=== PATIENT | female | born 1995 | race Caucasian/White ===

== ENCOUNTER 2019-02-13 17:45 | Inpatient (IN) | payer BC, OTHER ==
[2019-02-13] MEDS ORDERED: NS / Oxytocin 40 units/1000ml 1,000 ML IV PRN (17:59)
[2019-02-13] MEDS ORDERED: Lidocaine 1% (PF) 30 ML VIAL SC PRN (17:59)
[2019-02-13] MEDS ORDERED: Ondansetron PF 4 MG/2 ML Vial IVP PRN (17:59)
[2019-02-13] MEDS ORDERED: Promethazine HCl 25 MG/ML VIAL IM PRN (17:59)
[2019-02-13] MEDS ORDERED: hydrALAZINE 20 MG/ML VIAL SLOW IVP PRN (17:59)
[2019-02-13] MEDS ORDERED: NS w/ Oxytocin 10 units 500 ML IV SCH ×2 (18:00→18:15)
[2019-02-13] MEDS ORDERED: HYDROcodone/Acetaminophen 5/325 mg Tablet PO PRN ×2 (18:05)
[2019-02-13] MEDS ORDERED: Zolpidem Tartrate 5 MG TAB PO PRN (18:05)
[2019-02-13] MEDS ORDERED: Butorphanol Tartrate 1 MG/ML VIAL SLOW IVP PRN (18:05)
[2019-02-13] MEDS ORDERED: Misoprostol 200 MCG TAB PR PRN (18:05)
[2019-02-13] MEDS ORDERED: Ibuprofen 800 MG TAB PO PRN (18:05)
[2019-02-13] MEDS ORDERED: Carboprost 250 MCG/ML AMP IM PRN (18:05)
[2019-02-13] MEDS ORDERED: Diphenoxylate HCl/Atropine Tablet PO PRN ×2 (18:05)
[2019-02-13] MEDS ORDERED: Methylergonovine 0.2 MG/ML VIAL IM PRN (18:05)
[2019-02-13 18:08] VITALS: BMI 29.5
--- NOTE | 2019-02-13 18:18 | PDOC.LDHP ---
Labor and Delivery H&P Chief complaint: scheduled induction HPI: 23 y/o at 38 weeks and 6/7 days presents with Oligohydramnios noted at her last visit, with normal, reassuring NST/BPP in clinic last week for medically indicated induction. Grav: 2 Para: 1 Current complications: other (17-P used to prevent labor until 36 weeks.) Abnormal US findings: Yes (Oligohydramnios) Current medications: pre- vitamins Previous surgical history: none Social history: none - Physical Exam Vital signs reviewed and normal: yes General: NAD, resting Heart: RRR Lungs: nonlabored breathing Abdomen: gravid Extremeties: no edema FHT: category 1 - Assessment L&D Assessment: medically indicated induction - Plan Plan: admit to L&D, cervical ripening
[2019-02-13] MEDS: Lactated Ringer's 1,000 ML IV SCH ×2 (18:26→22:22)
[2019-02-13 18:56] LABS: Hemoglobin 10.7 g/dL (12.0-16.0); Mean Corpuscular HGB CONC 34.5 g/dL (32.0-36.0); Mean Corpuscular Hemoglobin 27.9 pg (27.0-31.0); Mean Corpuscular Volume 80.9 fL (78.0-98.0); Mean Platelet Volume 8.7 fL (7.4-10.4); Platelet Count 224 thou/uL (130-400); RBC Distribution Width 13.1 % (11.5-14.5); Red Blood Cell (RBC) Count 3.84 mill/uL (4.20-5.40)
[2019-02-13 19:36] LABS: HBSAg Index 0.33 S/CO (0-0.99); Hep B Surf Ag Non-Reactive S/CO (NonReactive)
[2019-02-13 19:37] LABS: Syphilis Antibody Nonreactive (Nonreactive); Syphilis Antibody Index 0.04 S/CO (<1.00 Non-Reactive)
[2019-02-13] MEDS: Misoprostol 100 MCG TAB VAG SCH ×2 (19:40→22:22)
[2019-02-14] MEDS ORDERED: Fentanyl 4 mcg/Bup 0.1% Cadd 100 ML ONE (00:45)
[2019-02-14] MEDS ORDERED: ePHEDrine/0.9% NaCl/PF SYRINGE 50 mg/10 ml SLOW IVP PRN (01:18)
[2019-02-14] MEDS ORDERED: Acetaminophen 325 MG TAB PO PRN (01:18)
[2019-02-14] MEDS ORDERED: Naloxone HCl 0.4 mg/ml Vial IVP PRN ×2 (01:18)
[2019-02-14] MEDS ORDERED: Promethazine HCl 25 MG/ML VIAL IM PRN ×2 (01:18→10:30)
[2019-02-14] MEDS ORDERED: Ondansetron PF 4 MG/2 ML Vial IVP PRN ×2 (01:18→10:30)
[2019-02-14] MEDS ORDERED: diphenhydrAMINE 50 MG/ML VIAL IVP PRN (01:18)
[2019-02-14] MEDS ORDERED: Lactated Ringer's 500 ML IV PRN (01:18)
[2019-02-14] MEDS: Misoprostol 100 MCG TAB VAG SCH ×2 (01:21→03:30)
[2019-02-14] MEDS ORDERED: Fentanyl 4 mcg/Bupivacaine 0.1% Cassette 100 ML EPIDURAL SCH (01:30)
[2019-02-14] MEDS ORDERED: Communication Order-Pharmacy FS SCH (01:30)
[2019-02-14] MEDS: Lactated Ringer's 1,000 ML IV SCH (02:37)
[2019-02-14] MEDS ORDERED: Lanolin Ointment 7 GM TUBE TOP PRN (10:30)
[2019-02-14] MEDS ORDERED: Preparation H Ointment 28 GM TUBE PR PRN (10:30)
[2019-02-14] MEDS ORDERED: diphenhydrAMINE 25 MG CAP PO PRN (10:30)
[2019-02-14] MEDS ORDERED: Milk Of Magnesia 30 ML UDCUP PO PRN (10:30)
[2019-02-14] MEDS ORDERED: Benzocaine-Menthol 82.5 ML CAN TOP PRN (10:30)
[2019-02-14] MEDS ORDERED: HYDROcodone/Acetaminophen 5/325 mg Tablet PO PRN ×2 (10:30)
[2019-02-14] MEDS ORDERED: Methylergonovine 0.2 MG/ML VIAL IM PRN (10:30)
[2019-02-14] MEDS ORDERED: hydrALAZINE 20 MG/ML VIAL SLOW IVP PRN (10:30)
[2019-02-14] MEDS ORDERED: NS / Oxytocin 40 units/1000ml 1,000 ML IV SCH (10:30)
[2019-02-14] MEDS ORDERED: Bisacodyl 10 MG SUPP PR PRN (10:30)
[2019-02-14] MEDS ORDERED: NS / Oxytocin 40 units/1000ml 1,000 ML ONE (10:35)
[2019-02-14] MEDS: Ibuprofen 800 MG TAB PO SCH ×2 (14:07→21:43)
[2019-02-14] MEDS: Docusate Calcium (SURFAK) 240 MG CAP PO SCH (17:46)
[2019-02-14] MEDS: Ferrous Sulfate 325 MG TAB PO SCH (18:41)
[2019-02-15] MEDS: Ibuprofen 800 MG TAB PO SCH ×2 (05:16→13:51)
[2019-02-15 07:38] LABS: Hemoglobin 10.5 g/dL (12.0-16.0)
[2019-02-15 07:56] VITALS: BP 103/66; TEMP 97.6
[2019-02-15] MEDS ORDERED: Measles/Mumps/Rubella 10 MCG/0.5 ML VIAL SC ONE (09:00)
[2019-02-15] MEDS ORDERED: Prenatal Vitamin 1 TAB PO SCH (09:00)
[2019-02-15] MEDS ORDERED: Adacel (T-DAP) 0.5 ML SYRINGE IM ONE (09:00)
[2019-02-15] MEDS: Docusate Calcium (SURFAK) 240 MG CAP PO SCH (09:10)
[2019-02-15] MEDS: Ferrous Sulfate 325 MG TAB PO SCH ×2 (09:10→18:18)
[2019-02-15] MEDS: Misoprostol 100 MCG TAB VAG SCH ×2 (17:55→17:56)
--- NOTE | 2019-02-15 18:38 | PDOC.PP ---
Post Progress Note Post Day #: 1 PO intake tolerated: yes Flatus: yes Ambulation: yes Vital Signs (12 hours) Temp Pulse Resp BP Pulse Ox 02/15/19 07:55 97.6 F 74 20 103/66 100 02/15/19 07:45 100 Weight Weight 172 lb - Physical Examination General: NAD Cardiovascular: no m/r/g Respiratory: clear to auscultation bilaterally, non-labored breathing Abdominal: + bowel sounds, lochia Extremities: negative homans (B) Neurological: no gross focal deficits Psychiatric: A&Ox3, normal affect (DC to home) Result Diagrams: 02/15/19 07:18 Additional Labs: Post Labs Blood Type O POSITIVE 02/13/19 19:29 Hep Bs Antigen Non-Reactive S/CO (NonReactive) 02/13/19 18:32
--- NOTE | 2019-02-16 13:33 | DN ---
DATE OF PROCEDURE: TIME OF SERVICE: At [address] Daylight Savings Time. PREOPERATIVE DIAGNOSIS: Intrauterine at 39 weeks and zero days with a term medical induction of labor for oligohydramnios. POSTOPERATIVE DIAGNOSIS: Intrauterine at 39 weeks and zero days with a term medical induction of labor for oligohydramnios. PROCEDURE: Spontaneous vaginal delivery over first-degree laceration of the perineum. FINDINGS: Viable female , weighing 2740 g or 6 pounds 1-ounce, Apgars 9 and 9 with an estimated blood loss of 120 mL. COMPLICATIONS: None. PROCEDURE IN DETAIL: The patient presented to [facility] where she was admitted to the labor and delivery service. The patient underwent a normal and uneventful labor with normal cervical dilatation until she was found to be completely dilated. She was then allowed to push and was able to bring the baby down and delivered the baby in a vertex presentation without difficulties. Once the head delivered in occiput anterior position, the shoulders followed spontaneously along with the rest of the baby's body. Once out the baby's mouth and nose were bulb suctioned. The cord was clamped and cut and baby was handed to waiting attendants. Cord blood was collected. Gentle fundal massage was performed and the placenta delivered intact without problems. Hemostasis was assured. Quantitative blood loss was calculated. Inspection of the cervix, vaginal vault, and perineum did not reveal any lacerations needing suturing. Once again, hemostasis was within normal limits and the patient was allowed to recover in the labor and delivery room. Baby went to nursery. Job ID: [id number]
== END 2019-02-15 19:46 | disposition home or self-care (01) | DRG 807 ==
LOC: L&D 17:45 → 3SW 02-14 11:10
PROVIDERS: ADMIT Obstetrics & Gynecology; ATTEND Obstetrics & Gynecology
PROC: 3E0P7VZ Introduction of Hormone into Female Reproductive, Via Natural or Artificial Opening (ICD-10-PCS; principal; 2019-02-14)
PROC: 10E0XZZ Delivery of Products of Conception, External Approach (ICD-10-PCS; 2019-02-15)
DX: O41.03X0 Oligohydramnios, third trimester, not applicable or unspecified (principal); Z37.0 Single live birth; Z3A.38 38 weeks gestation of pregnancy; O70.0 First degree perineal laceration during delivery
CPT/HCPCS: 36415; 51702; 85014; 85018; 85027; 86780; 86850; 86900; 86901; 87340; 90715; J2405; J2590

== ENCOUNTER 2019-08-18 22:40 | Emergency (ER) | payer BC, OTHER ==
[2019-08-18 22:58] LABS: #Basophils 0.1 thou/uL (0.0-0.2); #Eosinphils 0.1 thou/uL (0.0-0.7); #Monocytes 0.6 thou/uL (0.11-0.59); #Neutrophils 5.9 thou/uL (1.40-6.50); %Basophils 0.7 % (0.0-1.0); %Eosinophils 1.1 % (0.0-10.0); %Monocytes 5.8 % (0.0-10.0); %Neutrophils 61.4 % (42.0-75.0); Hemoglobin 14.4 g/dL (12.0-16.0); Mean Corpuscular Volume 84.5 fL (78.0-98.0); Platelet Count 273 thou/uL (130-400); RBC Distribution Width 12.7 % (11.5-14.5); Red Blood Cell (RBC) Count 5.33 mill/uL (4.20-5.40); White Blood Cell (WBC) Count 9.6 thou/uL (4.8-10.8)
--- NOTE | 2019-08-18 23:05 | RAD ---
Chest AP view INDICATION: Chest pain for one week COMPARISON: None FINDINGS: Lungs:The lungs are clear Cardiac silhouette:The cardiomediastinal silhouette appears within normal limits. Pulmonary vasculature:Normal Pleural spaces:No pleural effusion or pneumothorax is demonstrated. Upper abdomen:No abnormality seen. Osseous structures: No acute osseous abnormality. Additional findings:None. IMPRESSION: No acute cardiopulmonary abnormality.
[2019-08-18 23:19] LABS: ALT (SGPT) 13 U/L (8-55); AST (SGOT) 17 U/L (5-34); Albumin 5.1 g/dL (3.5-5.0); Alkaline Phosphatase 103 U/L (40-110); Anion Gap 14 mmol/L (10-20); BUN (Urea Nitrogen) 16 mg/dL (7.0-18.7); Bilirubin, Total 0.4 mg/dL (0.2-1.2); CK (CPK) 83 U/L (29-168); Calc. Creatinine Clearance 0 mL/min (70-130); Calcium 9.9 mg/dL (7.8-10.44); Carbon Dioxide 27 mmol/L (22-29); Chloride 104 mmol/L (98-107); Estimated GFR-MDRD 78; Globulin 3.4 g/dL (2.4-3.5); Glucose 100 mg/dL (70-105); Lipase 58 U/L (8-78); Potassium 3.7 mmol/L (3.5-5.1); Protein, Total 8.5 g/dL (6.0-8.3); Sodium 141 mmol/L (136-145)
[2019-08-18] MEDS ORDERED: Lidocaine Viscous Sol 2% 15 ml UD Cup ONE (23:21)
[2019-08-18] MEDS ORDERED: Mag-Al 1200 mg/1200 mg/30 ML UDCUP ONE (23:21)
== END 2019-08-19 00:20 | disposition home or self-care (01) ==
LOC: ERS 22:40
DX: R07.9 Chest pain, unspecified (principal)
CPT/HCPCS: 71045; 80053; 82550; 83690; 84484; 85025; 93005

== ENCOUNTER 2019-08-21 23:08 | Emergency (ER) | payer BC, OTHER ==
[2019-08-21 23:29] LABS: #Basophils 0.1 thou/uL (0.0-0.2); #Eosinphils 0.1 thou/uL (0.0-0.7); #Monocytes 0.6 thou/uL (0.11-0.59); #Neutrophils 6.2 thou/uL (1.40-6.50); %Basophils 0.7 % (0.0-1.0); %Lymphocytes 29.8 % (21.0-51.0); %Monocytes 5.8 % (0.0-10.0); %Neutrophils 62.7 % (42.0-75.0); Hemoglobin 13.1 g/dL (12.0-16.0); Mean Corpuscular HGB CONC 30.9 g/dL (32.0-36.0); Mean Corpuscular Hemoglobin 25.9 pg (27.0-31.0); Mean Corpuscular Volume 83.6 fL (78.0-98.0); Platelet Count 265 thou/uL (130-400); RBC Distribution Width 12.7 % (11.5-14.5); Red Blood Cell (RBC) Count 5.05 mill/uL (4.20-5.40); White Blood Cell (WBC) Count 9.9 thou/uL (4.8-10.8)
[2019-08-21 23:32] LABS: Bilirubin Negative (Negative); Blood, Urine 2+ (Negative); Clarity Clear (Clear); Glucose, Urine (Dipstick) Normal (Negative); Leukocyte 75 Leu/uL (Negative); Nitrite Negative (Negative); Protein, Urine (Dipstick) 10 mg/dL (Neg-Trace); RBC/HPF 0-3 HPF (0-3); Urobilinogen Normal mg/dL (Less than 2)
[2019-08-21 23:33] LABS: Bacteria/HPF 1+ HPF (None Seen); Pregnancy Test - Urine (BHCG) Negative (Negative); Pregu Control Background? CLEAR/WHITE (CLR/WHITE); Pregu Control Bar Appear? YES (CONTROL BAR); Specific Gravity 1.026 (1.002-1.036)
[2019-08-21 23:48] LABS: ALT (SGPT) 10 U/L (8-55); AST (SGOT) 16 U/L (5-34); Albumin 4.7 g/dL (3.5-5.0); Alkaline Phosphatase 109 U/L (40-110); Anion Gap 13 mmol/L (10-20); BUN (Urea Nitrogen) 19 mg/dL (7.0-18.7); Bilirubin, Total 0.3 mg/dL (0.2-1.2); Calc. Creatinine Clearance 0 mL/min (70-130); Calcium 9.7 mg/dL (7.8-10.44); Carbon Dioxide 25 mmol/L (22-29); Chloride 104 mmol/L (98-107); Estimated GFR-MDRD 83; Globulin 3.2 g/dL (2.4-3.5); Glucose 100 mg/dL (70-105); Lipase 38 U/L (8-78); Potassium 3.3 mmol/L (3.5-5.1); Protein, Total 7.9 g/dL (6.0-8.3); Sodium 139 mmol/L (136-145)
[2019-08-22] MEDS ORDERED: Sucralfate 1 GM/10 ML UDCUP ONE (00:27)
== END 2019-08-22 00:35 | disposition home or self-care (01) ==
LOC: ERS 23:08
DX: R10.12 Left upper quadrant pain (principal)
CPT/HCPCS: 36415; 80053; 81003; 81015; 81025; 83690; 85025; 99284

== ENCOUNTER 2019-12-28 22:41 | Emergency (ER) | payer MEDICAID, SELFPAY ==
[2019-12-28 23:41] LABS: #Eosinphils 0.1 thou/uL (0.0-0.7); #Lymphocytes 2.2 thou/uL (1.20-3.40); #Monocytes 0.4 thou/uL (0.11-0.59); #Neutrophils 5.3 thou/uL (1.40-6.50); %Basophils 0.4 % (0.0-1.0); %Monocytes 5.2 % (0.0-10.0); %Neutrophils 66.3 % (42.0-75.0); Hemoglobin 13.4 g/dL (12.0-16.0); Mean Corpuscular HGB CONC 33.2 g/dL (32.0-36.0); Mean Corpuscular Hemoglobin 28.2 pg (27.0-31.0); Mean Corpuscular Volume 85.1 fL (78.0-98.0); Mean Platelet Volume 7.7 fL (7.4-10.4); Platelet Count 282 thou/uL (130-400); RBC Distribution Width 12.5 % (11.5-14.5); Red Blood Cell (RBC) Count 4.76 mill/uL (4.20-5.40)
[2019-12-29 00:03] LABS: ALT (SGPT) 11 U/L (8-55); AST (SGOT) 14 U/L (5-34); Albumin 4.5 g/dL (3.5-5.0); Alkaline Phosphatase 89 U/L (40-110); Anion Gap 12 mmol/L (10-20); BUN (Urea Nitrogen) 11 mg/dL (7.0-18.7); Bilirubin, Total 0.3 mg/dL (0.2-1.2); CK (CPK) 84 U/L (29-168); Calc. Creatinine Clearance 0 mL/min (70-130); Calcium 9.9 mg/dL (7.8-10.44); Carbon Dioxide 26 mmol/L (22-29); Chloride 106 mmol/L (98-107); Estimated GFR-MDRD Greater than 90; Globulin 3.2 g/dL (2.4-3.5); Glucose 112 mg/dL (70-105); Lipase 37 U/L (8-78); Potassium 3.5 mmol/L (3.5-5.1); Protein, Total 7.7 g/dL (6.0-8.3); Sodium 140 mmol/L (136-145)
--- NOTE | 2019-12-29 00:31 | RAD ---
RADIOGRAPH CHEST 1 VIEW: DATE: 12/28/2019 11:51 PM HISTORY: 24-year-old female with tachycardia FINDINGS: The visualized lung humphries are clear. The cardiomediastinal silhouette and hilar shadows are normal. The lateral costophrenic angles are sharp. The osseous structures appear normal. There is no pneumothorax. IMPRESSION: Negative.
== END 2019-12-29 00:42 | disposition home or self-care (01) ==
LOC: ERS 22:41
DX: R07.9 Chest pain, unspecified (principal); R00.2 Palpitations
CPT/HCPCS: 36415; 71045; 80053; 82550; 83690; 84484; 85025; 93005